=== PATIENT | male | born 1985 | race African-American/Black ===

== ENCOUNTER 2020-05-24 21:14 | Emergency (ER) | payer OTHER, SELFPAY ==
[2020-05-24 23:46] LABS: Absolute Lymphocytes (CBC) 2.3 K/uL (0.7-4.9); Basophils % 1.5 % (0-1.3); Lymphocytes % 35.8 % (15.3-44.8); MPV 9.5 fL (7.6-11.3); RBC Red Blood Cell Count 5.01 M/uL (4.33-5.43)
[2020-05-24 23:50] LABS: Protime INR 0.93
[2020-05-25 00:03] LABS: ALT/SGPT 22 U/L (12-78); AST/SGOT 9 U/L (15-37); Alkaline Phosphatase 86 U/L (45-117); BUN Blood Urea Nitrogen 8 mg/dL (7-18); Bicarbonate 29 mmol/L (21-32); Bilirubin Direct < 0.1 mg/dL (0-0.2); Bilirubin Total 0.3 mg/dL (0.2-1.0); Glucose Level 90 mg/dL (74-106); Magnesium 2.2 mg/dL (1.8-2.4); NT PRO-BNP 12 pg/mL (<125); Protein, Total 7.6 g/dL (6.4-8.2); Sodium Level 142 mmol/L (136-145); Troponin (Emerg Dept Use Only) < 0.02 ng/mL (0.0-0.045)
[2020-05-25] MEDS ORDERED: ALBUTEROL 2.5 MG/3 ML NEB SOL ONE ×2 (00:37→01:28)
[2020-05-25] MEDS ORDERED: METHYLPREDNISOLONE 125 MG INJ ONE (01:27)
[2020-05-25] MEDS ORDERED: IPRATROPIUM BROM 0.5MG/2.5ML ONE (01:27)
--- NOTE | 2020-05-25 03:08 | EDPHYS ---
Physician Documentation [facility] Name: Daniel Orozco Age: 35 yrs Sex: Male : 1985 Arrival Date: 05/24/2020 Time: 21:20 Bed 7 Private MD: ED Physician Lucio Hurtado HPI: 05/25 00:00 This 35 yrs old Black Male presents to ER via Ambulatory with complaints of Chest Pain. pm1 00:00 The patient or guardian reports chest pain that is located primarily in the mid-sternal pm1 area. The pain does not radiate. Associated signs and symptoms: Pertinent positives: shortness of breath, back tingling, Pertinent negatives: abdominal pain, cough, nausea, palpitations, vomiting. The chest pain is described as tightness. Severity of pain: in the emergency department the pain is unchanged. The patient has not experienced similar symptoms in the past. The patient has not recently seen a physician. Onset around 1900 today. Historical: - Allergies: 05/24 21:42 No Known Allergies; ll1 - PMHx: 21:42 VSD; ll1 - PSHx: 21:42 anal fistula repair; ll1 - Immunization history:: Flu vaccine is not up to date. - Social history:: Smoking status: Patient denies any tobacco usage or history of. ROS: 05/25 00:00 Constitutional: Negative for fever, chills, and weight loss. pm1 Abdomen/GI: Negative for abdominal pain, nausea, vomiting, diarrhea, and constipation, MS/Extremity: Negative for injury and deformity, Skin: Negative for injury, rash, and discoloration, Neuro: Negative for headache, weakness, numbness, tingling, and seizure. Cardiovascular: Positive for chest pain, Negative for edema, palpitations. Respiratory: Positive for shortness of breath, Negative for cough, wheezing. Back: Positive for of the right scapular area, tingling sensation, Negative for radiated pain. Exam: 00:00 Constitutional: This is a well developed, well nourished patient who is awake, alert, pm1 and in no acute distress. Head/Face: Normocephalic, atraumatic. 00:00 Back: No spinal tenderness. No costovertebral tenderness. Full range of motion. Skin: Warm, dry with normal turgor. Normal color with no rashes, no lesions, and no evidence of cellulitis. MS/ Extremity: Pulses equal, no cyanosis. Neurovascular intact. Full, normal range of motion. 00:00 Cardiovascular: Exam negative for acute changes, Rate: normal, Rhythm: regular, Pulses: no pulse deficits are appreciated. 00:00 Respiratory: Exam negative for acute changes, respiratory distress, shortness of breath, Breath sounds: are clear throughout. 00:00 Abdomen/GI: Exam negative for Inspection: abdomen appears normal, Palpation: abdomen is soft and non-tender, in all quadrants. 00:00 Neuro: Exam negative for acute changes, Orientation: is normal, Mentation: is normal, Motor: is normal, moves all fours. Vital Signs: 05/24 21:41 BP 142 / 92; Pulse 86; Resp 17; Temp 98.1; Pulse Ox 100% ; Weight 74.84 kg; Height 5 ll1 ft. 10 in. (177.80 cm); 23:33 BP 146 / 93; Resp 18; Pulse Ox 100% on R/A; mg2 05/25 00:49 Pulse 75; Resp 18; Pulse Ox 100% on R/A; mg2 02:06 BP 127 / 71; Pulse 98; Resp 18; Pulse Ox 98% on R/A; mg2 03:30 BP 124 / 74; Pulse 98; Resp 18; Pulse Ox 99% on R/A; wh 05/24 21:41 Body Mass Index 23.67 (74.84 kg, 177.80 cm) ll1 MDM: 05/24 23:[address] [facility] 05/25 01:45 ED course: Patient reports history of asthma. Reports breathing treatments given in the pm1 ER have helped to some degree. Will evaluate the patient with CT rule out PE and dissection . 01:49 Data reviewed: vital signs. pm1 02:06 Data interpreted: Pulse oximetry: on room air is 100 %. Interpretation: normal. pm1 05/24 23:31 Order name: Basic Metabolic Panel; Complete Time: 00:06 pm1 05/24 23:31 Order name: CBC with Diff; Complete Time: 00:06 pm1 05/24 23:31 Order name: LFT's; Complete Time: 00:06 pm1 05/24 23:31 Order name: Magnesium; Complete Time: 00:06 pm1 03/23 23:31 Order name: NT PRO-BNP; Complete Time: 00:06 pm1 05/24 23:31 Order name: PT-INR; Complete Time: 00:06 pm1 05/24 23:31 Order name: Troponin (emerg Dept Use Only); Complete Time: 00:06 pm1 05/24 23:31 Order name: XRAY Chest (1 view) pm05/24 23:31 Order name: EKG; Complete Time: 23:32 pm1 05/25 01:45 Order name: CT Aorta for Dissection pm05/24 23:31 Order name: Cardiac monitoring; Complete Time: 23:32 pm1 05/24 23:31 Order name: EKG - Nurse/Tech; Complete Time: 23:32 pm1 05/24 23:31 Order name: IV Saline Lock; Complete Time: 23:32 pm1 05/24 23:31 Order name: Labs collected and sent; Complete Time: 23:32 pm1 05/24 23:31 Order name: O2 Per Protocol; Complete Time: 23:32 pm1 05/24 23:31 Order name: O2 Sat Monitoring; Complete Time: 23:32 pm1 Administered Medications: 00:24 Drug: Albuterol 2.5 mg Route: Inhalation; mg2 01:17 Drug: Albuterol 5 mg Route: Inhalation; wh 01:17 Drug: AtroVENT Aerosol 0.5 mg Route: Inhalation; wh 01:17 Drug: SOLU-Medrol 125 mg Route: IVP; Site: right antecubital; wh 03:37 Follow up: Response: No adverse reaction; Wheezing diminished wh Disposition: 03:07 Co-signature as Attending Physician, Lucio Hurtado MD I agree with the assessment and camilla plan of care. Disposition: 05/25/20 03:07 Discharged to Home. Impression: Chest pain, unspecified, Shortness of breath. - Condition is Stable. - Discharge Instructions: Aspirin and Your Heart, Nonspecific Chest Pain, Shortness of Breath. - Prescriptions for Medrol (Aj) 4 mg Oral Tablets, Dose Pack - take 1 tablet by ORAL route as directed - follow package instructions; 1 packet. Albuterol Sulfate 90 mcg/actuation - inhale 1-2 puff by INHALATION route every 4-6 hours; 1 Inhaler. - Medication Reconciliation Form, Thank You Letter, Antibiotic Education, Prescription Opioid Use form. - Follow up: Emergency Department; When: As needed; Reason: Worsening of condition. Follow up: Private Physician; When: 2 - 3 days; Reason: Recheck today's complaints, Continuance of care, Re-evaluation by your physician. - Problem is new. - Symptoms have improved. Signatures: Dispatcher [employer] EDMS Lucio Hurtado MD MD cha Marinas, Patrick, MANAGER NUCLEAR MANAGER NUCLEAR pm1 Joshua Aguilar RN RN Giacomo Rutledge RN RN [facility] Adonis Cohen RN RN ll1 Corrections: (The following items were deleted from the chart) 03:38 03:07 05/25/2020 03:07 Discharged to Home. Impression: Chest pain, unspecified; wh Shortness of breath. Condition is Stable. Discharge Instructions: Nonspecific Chest Pain, Shortness of Breath. Prescriptions for Medrol (Aj) 4 mg Oral Tablets, Dose Pack - take 1 tablet by ORAL route as directed - follow package instructions; 1 packet, Albuterol Sulfate 90 mcg/actuation - inhale 1-2 puff by INHALATION route every 4-6 hours; 1 Inhaler. and Forms are Medication Reconciliation Form, Thank You Letter, Antibiotic Education, Prescription Opioid Use. Follow up: Emergency Department; When: As needed; Reason: Worsening of condition. Follow up: Private Physician; When: 2 - 3 days; Reason: Recheck today's complaints, Continuance of care, Re-evaluation by your physician. Problem is new. Symptoms have improved. camilla
--- NOTE | 2020-05-25 03:08 | ER ---
Nurse's Notes [facility] [place] Name: Daniel Orozco Age: 35 yrs Sex: Male : 1985 Arrival Date: 05/24/2020 Time: 21:20 Bed 7 Private MD: Diagnosis: Chest pain, unspecified;Shortness of breath Presentation: 05/24 21:41 Chief complaint: Patient states: CP and SOB for 1 day. Feels tingling to back area. No ll1 cough or fever. Coronavirus screen: Client denies travel out of the [place] in the last 14 days. At this time, the client does not indicate any symptoms associated with coronavirus-19. Ebola Screen: Patient denies travel to an Ebola-affected area in the 21 days before illness onset. Initial Sepsis Screen: Does the patient meet any 2 criteria? No. Patient's initial sepsis screen is negative. Does the patient have a suspected source of infection? No. Patient's initial sepsis screen is negative. Risk Assessment: Do you want to hurt yourself or someone else? Patient reports no desire to harm self or others. Onset of symptoms was May 24, 2020. 21:41 Method Of Arrival: Ambulatory ll1 21:41 Acuity: ANNA 3 ll1 Historical: - Allergies: 21:42 No Known Allergies; ll1 - PMHx: 21:42 VSD; ll1 - PSHx: 21:42 anal fistula repair; ll1 - Immunization history:: Flu vaccine is not up to date. - Social history:: Smoking status: Patient denies any tobacco usage or history of. Screenin:33 Abuse screen: Denies threats or abuse. Denies injuries from another. Nutritional mg2 screening: No deficits noted. Tuberculosis screening: No symptoms or risk factors identified. Fall Risk IV access (20 points). Assessment: 23:32 General: Appears in no apparent distress. comfortable, Behavior is calm, cooperative. mg2 Pain: Complains of pain in chest Pain does not radiate. Pain began gradually. Neuro: Level of Consciousness is awake, alert, obeys commands, Oriented to person, place, time, situation. Cardiovascular: Capillary refill < 3 seconds Patient's skin is warm and dry. Respiratory: Airway is patent Respiratory effort is even, unlabored, Respiratory pattern is regular, symmetrical. GI: No signs and/or symptoms were reported involving the gastrointestinal system. : No signs and/or symptoms were reported regarding the genitourinary system. EENT: No signs and/or symptoms were reported regarding the EENT system. Derm: Skin is intact, is healthy with good turgor, Skin is pink, warm \T\ dry. normal. Musculoskeletal: Circulation, motion, and sensation intact. Capillary refill < 3 seconds. 05/25 02:05 Reassessment: Patient appears in no apparent distress at this time. Patient and/or mg2 family updated on plan of care and expected duration. Pain level reassessed. Patient is alert, oriented x 3, equal unlabored respirations, skin warm/dry/pink. patient is still having chest discomfort. 02:27 Reassessment: Patient appears in no apparent distress at this time. Patient and/or mg2 family updated on plan of care and expected duration. Pain level reassessed. Patient is alert, oriented x 3, equal unlabored respirations, skin warm/dry/pink. patient returned from ct scan. 03:30 Reassessment: Patient appears in no apparent distress at this time. Patient and/or wh family updated on plan of care and expected duration. Pain level reassessed. Patient is alert, oriented x 3, equal unlabored respirations, skin warm/dry/pink. Vital Signs: 05/24 21:41 BP 142 / 92; Pulse 86; Resp 17; Temp 98.1; Pulse Ox 100% ; Weight 74.84 kg; Height 5 ll1 ft. 10 in. (177.80 cm); 23:33 BP 146 / 93; Resp 18; Pulse Ox 100% on R/A; mg2 05/25 00:49 Pulse 75; Resp 18; Pulse Ox 100% on R/A; mg2 02:06 BP 127 / 71; Pulse 98; Resp 18; Pulse Ox 98% on R/A; mg2 03:30 BP 124 / 74; Pulse 98; Resp 18; Pulse Ox 99% on R/A; wh 05/24 21:41 Body Mass Index 23.67 (74.84 kg, 177.80 cm) ll1 ED Course: 05/24 21:20 Patient arrived in ED. cf2 21:42 Triage completed. ll1 21:42 Arm band placed on. EKG completed in triage. Results shown to MD. 1 23:30 Giacomo Rutledge, RN is Primary Nurse. mg2 23:30 Brad Baca NP is PHCP. pm1 23:30 Lucio Hurtado MD is Attending Physician. pm1 23:33 Patient has correct armband on for positive identification. efficiency engineer on. Pulse mg2 ox on. NIBP on. 23:33 No provider procedures requiring assistance completed. Patient maintains SpO2 mg2 saturation greater than 95% on room air. 23:45 XRAY Chest (1 view) In Process Unspecified. EDMS 05/25 02:35 CT Aorta for Dissection In Process Unspecified. EDNM 03:37 IV discontinued, intact, bleeding controlled, No redness/swelling at site. Administered Medications: 00:24 Drug: Albuterol 2.5 mg Route: Inhalation; [facility] 01:17 Drug: Albuterol 5 mg Route: Inhalation; 01:17 Drug: AtroVENT Aerosol 0.5 mg Route: Inhalation; 01:17 Drug: SOLU-Medrol 125 mg Route: IVP; Site: right antecubital; 03:37 Follow up: Response: No adverse reaction; Wheezing diminished Outcome: 03:07 Discharge ordered by . camilla 03:36 Discharged to home ambulatory. 03:36 Condition: stable 03:36 Discharge instructions given to patient, Instructed on discharge instructions, follow up and referral plans. medication usage, POC Demonstrated understanding of instructions, follow-up care, medications, POC Prescriptions given X 2. 03:38 Patient left the ED. Signatures: Dispatcher [employer] EDNM Lucio Hurtado MD MD cha Marinas, Patrick, [employer] SPECIALIST pm1 Joshua Aguilar RN RN Giacomo Rutledge RN RN [facility] Carolyn Hope 2 Adonis Cohen RN RN ll1 Corrections: (The following items were deleted from the chart) 02:06 00:49 Pulse 59bpm; Resp 18bpm; Pulse Ox 100% RA; mg2 mg2
[2020-05-25 03:45] VITALS: TEMP 98.1
[2020-05-25 03:50] VITALS: BP 124/74; O2SAT 99
--- NOTE | 2020-05-25 07:03 | EKG ---
Test Date: 2020-05-24 Test Time: 20:39:38 Explosive Expert: LML MEASUREMENT RESULTS: Intervals: Rate: 75 SC: 120 QRSD: 86 QT: 364 QTc: 406 [place]: P: 53 SC: 120 QRS: 102 T: -11 INTERPRETIVE STATEMENTS: Sinus rhythm with marked sinus arrhythmia Possible Lateral infarct, age undetermined Cannot rule out Inferior infarct, age undetermined Abnormal ECG No previous ECG available for comparison Electronically Signed On 05-25-20 07:02:20 CDT by Leeroy Mahmood
--- NOTE | 2020-05-25 07:40 | RAD REPORT ---
EXAM DESCRIPTION: Arjun Single View05/24/2020 11:45 pm CLINICAL HISTORY: Chest pain COMPARISON: none FINDINGS: The lungs appear clear of acute infiltrate. The heart is normal size IMPRESSION: No acute abnormalities displayed
--- NOTE | 2020-05-25 11:21 | RAD REPORT ---
EXAM DESCRIPTION: CT - Angio Aorta For Dissection - 05/25/2020 7:14 am CLINICAL HISTORY: The patient is 35 years old and is Male; CHEST PAIN TECHNIQUE: Axial computed tomographic angiography images of the chest, abdomen and pelvis with intra venous contrast. Sagittal and coronal reformatted images were created and reviewed. This CT exam was performed using one or more of the following dose reduction techniques: automated exposure cont rol, adjustment of the mA and/or kV according to patient size, and/or use of iterative reconstruction technique. MIP reconstructed images were created and reviewed. COMPARISON: No relevant prior studies available. FINDINGS: VASCULATURE: Aorta: No acute findings. No aortic aneurysm. No dissection. Pulmonary arteries: Unremarkable as visualized. No pulmonary embolism is identified. Great vessels of aortic arch: No acute findings. No dissection. No arterial occlusion or sig nificant stenosis. Celiac trunk and mesenteric arteries: No acute findings. No occlusion or significant stenosis. Renal arteries: No acute findings. No occlusion or significant stenosis. Iliac arteries: No acute findings. No occlusion or significant stenosis. CHEST: Lungs: Unremarkable. No mass. No consolidation. Pleural space: Unremarkable. No significant effusion. No pneumothorax. Heart: Unremarkable. No cardiomegaly. No significant pericardial effusion. ABDOMEN: Liver: Unremarkable. No mass. Gallbladder and bile ducts: Unremarkable. No calcified stones. No ductal dilation. Pancreas: Unremarkable. No ductal dilation. No mass. Spleen: Unremarkable. No splenomegaly. Adrenals: Unremarkable. No mass. Kidneys and ureters: Unremarkable. No hydronephrosis. No solid mass. Stomach and bowel: Unremarkable. No obstruction. No mucosal thickening. PELVIS: Appendix: No findings to suggest acute appendicitis. Bladder: Unremarkable. No mass. Reproductive: Unremarkable as visualized. CHEST, ABDOMEN and PELVIS: Intraperitoneal space: Unremarkable. No significant fluid collection. No free air. Bones/joints: No acute fracture. No dislocation. Soft tissues: Unremarkable. Lymph nodes: Unremarkable. No enlarged lymph nodes. IMPRESSION: No acute findings in the arterial system of the chest, abdomen or pelvis. No aortic di ssection. Electronically signed by: Tremayne Stevenson MD 05/25/2020 2:54 AM CDT Due to temporary technical issues with the PACS/Fluency reporting system, reports are being signed by the in house radiologist without review as a courtesy to ensure prompt reporting. The interpreting r adiologist is fully responsible for the content of the report.
== END 2020-05-25 03:38 | disposition home or self-care (01) ==
LOC: ER 21:14
DX: R06.02 Shortness of breath (principal); J45.909 Unspecified asthma, uncomplicated
CPT/HCPCS: 36415; 71045; 71275; 74175; 80048; 80076; 83735; 83880; 84484; 85025; 85610; 93005; 96374; 99285; J2930; Q9967